=== PATIENT | female | born 1935 | race Caucasian/White ===

== ENCOUNTER 2019-10-12 08:43 | Outpatient (RCR) | payer MEDICARE, SELFPAY ==
[2019-08-05 06:58] LABS: INR 3.6; Prothrombin Time 35.3 Seconds (11.1-14.7)
[2019-10-13 06:45] LABS: INR 3.6; Prothrombin Time 35.1 Seconds (11.1-14.7)
== END 2019-11-01 23:59 | disposition home or self-care (01) ==
LOC: CAMBRIDGE 08:43
DX: Z51.81 Encounter for therapeutic drug level monitoring (principal); I48.0 Paroxysmal atrial fibrillation; Z79.01 Long term (current) use of anticoagulants
CPT/HCPCS: 36415; 85610